=== PATIENT | female | born 1945 | race Caucasian/White ===

== ENCOUNTER → 2017-04-25 | Outpatient (CLI) | payer MEDICARE, BC ==
--- NOTE | 2017-04-25 22:01 | HKNOTE ---
DATE OF SERVICE: 04/25/2017 The patient complains of pain in the right knee. She has osteoarthritis of her right knee. [place] [facility]. She will be doing a lot of walking. She requested repeat cortisone injection. The last cortisone injection into her yara leyva gave her 2 years of relief. She still plays doubles tennis. PHYSICAL EXAMINATION: VITAL SIGNS: Height 5 feet, weight 160 pounds, blood pressure 120/60, temperature 98.6. MUSCULOSKELETAL: On examination of the right knee, full range of motion with pain at the limits of motion, and 6+ crepitus in the knee. DIAGNOSIS: Degenerative osteoarthritis of the right knee. MANAGEMENT: Under sterile conditions, the patient was given injection of 2 mL of Kenalog and 6 mL o f 2% lidocaine into the right knee. She will be seen again as necessary for further treatment. Dictated By: CHELLE JEFFRIES/ALONZO Conf#: [id number] DID#: [id number]
== END | disposition home or self-care (01) ==
LOC: HKI 13:45
DX: M17.11 Unilateral primary osteoarthritis, right knee (principal)
CPT/HCPCS: 20610; G0463

== ENCOUNTER → 2017-09-25 | Outpatient (CLI) | payer MEDICARE, BC ==
--- NOTE | 2017-09-25 14:52 | HKNOTE ---
DATE OF SERVICE: 09/25/2017 MAIN COMPLAINT: Pain in the right knee. HISTORY OF MAIN COMPLAINT: Patient was last seen by me in September with a diagnosis of arthritis of the right knee. She was given a cortisone injection which gave her excellent relief until about a month ago. She comes in requesting repeat cortisone injection. She has been taking Aleve for the pain, but that has not helped very much. She plays doubles tennis twice a week, has not been able to do so lately. PHYSICAL EXAMINATION: VITAL SIGNS: Blood pressure 115/55, temperature 98.6. RIGHT KNEE: The right knee shows normal alignment. Active and passive extension is 0 degrees. Activ e and passive flexion is 135 degrees. The medial and lateral collateral ligaments and cruciate ligam ents are intact. Salo test is negative. There is 1+ effusion, tenderness, scarring, 2+ crepitus, or cysts. The patella tracks normally. There is no tenderness on the articular surface of the patell a or in the patellar groove. The Q angle is normal. IMAGING: New x-rays of the right knee obtained at the [facility] today were revi ewed. These show moderate narrowing of the medial and lateral compartments of the knee. There is n o [id number] contact and no secondary arthritic changes. DIAGNOSIS: Degenerative osteoarthritis of the right knee. MANAGEMENT: Under sterile conditions, the patient was given injection of 2 mL of Kenalog and 6 mL o f 2% lidocaine into the knee. She will be seen again as necessary. Dictated By: CHELLE VO MD HH/NTS Conf#: [id number] DID#: [id number] CC: CHELLE VO MD;*EndCC*
--- NOTE | 2017-09-25 17:07 | RADRPT ---
PROCEDURE: Right knee radiographs. CLINICAL INDICATION: Right knee pain. TECHNIQUE: Three views. Weight bearing. Frontal, lateral, and patellar view. COMPARISON: 09/01/2015. FINDINGS: There is no fracture or dislocation. The soft tissues are normal. There are degenerative changes with small osteophytes arising from all 3 joint compartment margins. There is medial and lateral joint compartment narrowing. There is no lytic or blastic lesion. There is no radiopaque foreign body. IMPRESSION: 1. Mild to moderate degenerative changes of the right knee, worse than seen previously. 2. No acute abnormality. RPTAT: QQ .Alex Bowen MD, MD Date Time Electronically viewed and signed by .Alex Bowen MD, MD on 09/25/2017 17:07 .R/
== END | disposition home or self-care (01) ==
LOC: HKI 10:47
DX: M17.11 Unilateral primary osteoarthritis, right knee (principal)
CPT/HCPCS: 20610; 73562; G0463

== ENCOUNTER → 2017-09-25 | Outpatient (CLI) | payer MEDICARE, BC ==
--- NOTE | 2017-09-25 15:54 | HKNOTE ---
DATE OF SERVICE: 09/25/2017 CHIEF COMPLAINT: Right shoulder pain. HISTORY OF PRESENT ILLNESS: This is a 72-year-old right-hand dominant female who is complaining of right shoulder pain. She states that the pain has worsened over the last month. She had an episode where she fell forward onto her right shoulder. She denies any numbness or weakness. She denies a ny neck pain. She has been able to perform her activities of daily living. She takes ibuprofen for pain control. She has no other complaints. PHYSICAL EXAMINATION: Right shoulder: No deformity. She is tender over the anterior deltoid. She is nontender over the AC joint and clavicle. There is 180 degrees of forward flexion, 90 degrees o f external rotation, 90 degrees of internal rotation, 170 degrees of abduction, 30 degrees of adduct ion. Positive Augustine. Negative Neer's. Negative belly press. Negative liftoff. X-RAYS: Right shoulder: Three views of the right shoulder do not demonstrate any degenerative herndon ges or fractures. IMPRESSION: A 72-year-old female with right shoulder pain. PLAN: I discussed treatment options with the patient. After obtaining verbal consent, the right jacobolder was prepped and draped in the usual sterile fashion. A mixture of 1 mL of steroid along with 3 mL of 1% lidocaine was injected under sterile technique. There were no complications. She luis alberto ated the procedure well. She was advised to ice the right shoulder. She will take ibuprofen for pa in control. She will follow up as needed in the future. Dictated By: MARY ALATORRE/ALONZO Conf#: [id number] DID#: [id number]
--- NOTE | 2017-09-25 17:11 | RADRPT ---
PROCEDURE: XR Right Shoulder. CLINICAL INDICATION: Right shoulder pain. TECHNIQUE: Three views. Frontal internal rotation, frontal external rotation, and oblique. COMPARISON: No prior study is available for comparison. FINDINGS: There is no fracture or dislocation. The soft tissues are normal. Articular surfaces are intact. There is no lytic or blastic lesion. There is no radiopaque foreign body. IMPRESSION: 1. Normal images of the right shoulder. RPTAT: VPH .Alex Bowen MD, MD Date Time Electronically viewed and signed by .Alex Bowen MD, MD on 09/25/2017 17:11 .R/
== END | disposition home or self-care (01) ==
LOC: HKI 13:06
PROVIDERS: ATTEND Orthopaedic Surgery Adult Reconstructive Orthopaedic Surgery
DX: M25.511 Pain in right shoulder (principal)
CPT/HCPCS: 20610; 73030; G0463; J1030

== ENCOUNTER → 2018-03-18 | Outpatient (CLI) | END | disposition home or self-care (01) ==

== ENCOUNTER → 2018-04-09 | Outpatient (CLI) | END | disposition home or self-care (01) ==

== ENCOUNTER → 2018-05-20 | Outpatient (CLI) | END | disposition home or self-care (01) ==